=== PATIENT | female | born 1945 | race Caucasian/White ===

== ENCOUNTER 2024-11-25 15:12 | Emergency (ER) | payer MEDICARE, BC ==
[~2024-11-25] VITALS: Ht 172.7 cm; Wt 72.0 kg
[2024-11-25 16:03] VITALS: BP 154/100
[2024-11-25 16:30] VITALS: BP 155/67
[2024-11-25 17:00] VITALS: BP 170/68
[2024-11-25 17:30] VITALS: BP 157/80
[2024-11-25] MEDS ORDERED: ONDANSETRON HCl 4 MG/2 ML SDV IV ONE (17:45)
[2024-11-25] MEDS ORDERED: MORPHINE SULFATE 4 MG/ML VIAL IV ONE (17:45)
[2024-11-25 18:04] LABS: BASO% 0.5 % (0-3); EOS% 2.2 % (0-8); HEMATOCRIT 41.5 % (37.0-47.0); HEMOGLOBIN 13.6 g/dl (12.0-16.0); IMMATURE GRANULOCYTES 0.1 % (0.0-5.0); LYMPH% 21.3 % (15-41); MEAN CELL VOLUME 88.9 fL CALC (80.0-100.0); MEAN CORPUSCULAR HGB 29.1 pG CALC (26.0-32.0); MEAN CORPUSCULAR HGB CONC 32.8 g/dL CAL (32.0-36.0); MONO% 7.2 % (2-13); NEUT# 5.74 thou/uL (2.00-7.15); NEUT% 68.7 % (42-76); RED BLOOD COUNT 4.67 mill/uL (4.20-5.60); RED CELL DISTRI WIDTH 12.1 % (11.5-15.5)
[2024-11-25 18:24] LABS: ALBUMIN 4.7 g/dL (3.2-5.0); BILIRUBIN, TOTAL 0.8 mg/dL (0.02-1.3); POTASSIUM 4.3 mmol/l (3.5-5.1); TOTAL PROTEIN 8.3 g/dL (6.3-8.2)
[2024-11-25 18:30] VITALS: BP 157/64
[2024-11-25] MEDS ORDERED: HYDROCO/APAP1 TA9 PO (18:37)
[2024-11-25] MEDS ORDERED: IBUPROFEN600 MG PO (18:37)
[2024-11-25] MEDS ORDERED: ZPAK PO (18:37)
[2024-11-25] MEDS ORDERED: AMOX/K CLAV875 M1 PO (18:37)
[2024-11-25 18:50] VITALS: BP 157/64
== END 2024-11-25 18:55 | disposition home or self-care (01) ==
LOC: ED 15:12
PROVIDERS: Family Medicine
DX: S22.41XA Multiple fractures of ribs, right side, initial encounter for closed fracture (principal); S27.1XXA Traumatic hemothorax, initial encounter; J18.9 Pneumonia, unspecified organism; W07.XXXA Fall from chair, initial encounter; Y92.009 Unspecified place in unspecified non-institutional (private) residence as the place of occurrence of the external cause
CPT/HCPCS: J2405